=== PATIENT | male | born 1980 | race Caucasian/White ===

== ENCOUNTER 2017-01-03 13:28 | Emergency (ER) | payer SELFPAY ==
[~2017-01-03] VITALS: Ht 185.4 cm; Wt 97.0 kg
[2017-01-03 13:35] VITALS: BP 132/68; PULSE 102; RESP 18; TEMP 98.5; O2SAT 94
[2017-01-03 13:40] VITALS: O2SAT 92
[2017-01-03] MEDS ORDERED: RESP: ALBUTEROL 2.5 MG/IPRATROPIUM 0.5 MG NEB (SCH) INH ONE (13:45)
[2017-01-03] MEDS ORDERED: TETANUS/DIPHTHERIA TOXOID ADULT 0.5 ML VIAL IM ONE (13:45)
[2017-01-03] MEDS ORDERED: SODIUM CHLORIDE 0.9% FLUSH 5 ML FLUSH IVF PRN (13:45)
--- NOTE | 2017-01-03 13:45 | PD ---
HPI Chief Complaint: chest pain Time Seen by Provider: 13:28 Travel History International Travel<30 days: No Contact w/Intl Traveler<30days: No Traveled to known affect area: No History of Present Illness HPI 36-year-old male presents under police custody for medical evaluation. The patient is on vacation from [place]. He reports that yesterday evening he used a large amount of cocaine, drink alcohol with some friends. He doesn't remember most of the events of yesterday evening. Today he was arrested at [place]. According to police escort he was aggressive with him and he ended up being tased twice, once on the left shoulder, once on the left lower abdomen. 45 minutes prior to arrival the patient began complaining of chest pain. He describes it as a sharp pain in the center of the chest that is coming and going but is worse with inspiration. He also has left shoulder pain. Per police, prior to the altercation with them he had an abrasion on his forehead and an abrasion on his lip. Unknown etiology. The patient is complaining of some dizziness and dyspnea. He denies any abdominal pain, vomiting, pain in legs, cough or congestion, calf Swelling. Denies any significant past medical history. He endorses tobacco use and alcohol use on a regular basis. His last tetanus vaccination is unknown. He has no other complaints. [facility] Social History Alcohol Use: Yes Tobacco Use: Yes Substance Use: Yes Allergies-Medications (Allergen,Severity, Reaction): Coded Allergies: No Known Allergies (Unverified , 01/03/17) Reported Meds & Prescriptions Reported Meds & Active Scripts Active Proair Hfa 8.5 GM Inh (Albuterol Sulfate) 90 Mcg/Act Aer 2 Puff INH Q4-6H PRN 108 mcg/actuation Prednisone 20 Mg Tab 20 Mg PO BID 5 Days Review of Systems Except as stated in HPI: all other systems reviewed are Neg Physical Exam Narrative GENERAL: Well-developed well-nourished male in no acute distress answering questions appropriately. SKIN: Warm and dry. There is a circular abrasion on the right forehead, abrasion to the upper lip, Taser timmy on the left anterior shoulder, abrasions anterior right knee. HEAD: Skin as noted above. Normocephalic. EYES: Pupils equal and round. No scleral icterus. No injection or drainage. ENT: No nasal bleeding or discharge. Mucous membranes pink and moist. NECK: Trachea midline. No JVD. CARDIOVASCULAR: Regular rate and rhythm. No murmur appreciated. RESPIRATORY: No accessory muscle use. Mild wheezing bilaterally. No crackles. GASTROINTESTINAL: Abdomen soft, non-tender, nondistended. Hepatic and splenic margins not palpable. MUSCULOSKELETAL: There is some tenderness to the left anterior shoulder joint. There is limited range of motion left shoulder secondary to pain. There is no lower extremity edema. NEUROLOGICAL: Awake and alert. No obvious cranial nerve deficits. Motor grossly within normal limits. Normal speech. PSYCHIATRIC: Appropriate mood and affect; insight and judgment normal. Data Data Last Documented VS Vital Signs Date Time Temp Pulse Resp B/P Pulse Ox O2 Delivery O2 Flow Rate FiO2 01/03/17 15:08 97 16 127/86 96 Room Air 01/03/17 13:50 2 01/03/17 13:35 98.5 Orders Electrocardiogram (01/03/17 13:37) Basic Metabolic Panel (Bmp) (01/03/17 13:37) Ckmb (Isoenzyme) Profile (01/03/17 13:37) Complete Blood Count With Diff (01/03/17 13:37) Magnesium (Mg) (01/03/17 13:37) Prothrombin Time / Inr (Pt) (01/03/17 13:37) Act Partial Throm Time (Ptt) (01/03/17 13:37) Troponin I (01/03/17 13:37) Chest, Single Ap (01/03/17 13:37) Ecg Monitoring (01/03/17 13:37) Iv Access Insert/Monitor (01/03/17 13:37) Oximetry (01/03/17 13:37) Oxygen Administration (01/03/17 13:37) Sodium Chloride 0.9% Flush (Ns Flush) (01/03/17 13:45) Ct Brain W/O Iv Contrast(Rout) (01/03/17 ) Shoulder, Complete (>2vws) (01/03/17 ) Drug Screen, Random Urine (01/03/17 13:37) Tetanus/Diphtheria Tox Adult (Tetanus/Di (01/03/17 13:45) Albuterol-Ipratropium Neb (Duoneb Neb) (01/03/17 13:45) Ct Pulmonary Angiogram (01/03/17 14:34) Sodium Chlor 0.9% 1000 Ml Inj (Ns 1000 M (01/03/17 15:08) CKMB (01/03/17 14:21) CKMB% (01/03/17 14:21) Iohexol 350 Inj (Omnipaque 350 Inj) (01/03/17 15:19) Methylprednisolone So Succ Inj (Solumedr (01/03/17 16:15) Support Splint (01/03/17 16:07) Labs Laboratory Tests Test 01/03/17 14:21 White Blood Count 15.9 TH/MM3 Red Blood Count 5.03 MIL/MM3 Hemoglobin 15.5 GM/DL Hematocrit 43.7 % Mean Corpuscular Volume 86.7 FL Mean Corpuscular Hemoglobin 30.9 PG Mean Corpuscular Hemoglobin 35.6 % Concent Red Cell Distribution Width 13.8 % Platelet Count 204 TH/MM3 Mean Platelet Volume 9.3 FL Neutrophils (%) (Auto) 75.5 % Lymphocytes (%) (Auto) 13.5 % Monocytes (%) (Auto) 10.3 % Eosinophils (%) (Auto) 0.4 % Basophils (%) (Auto) 0.3 % Neutrophils # (Auto) 12.0 TH/MM3 Lymphocytes # (Auto) 2.1 TH/MM3 Monocytes # (Auto) 1.6 TH/MM3 Eosinophils # (Auto) 0.1 TH/MM3 Basophils # (Auto) 0.0 TH/MM3 CBC Comment DIFF FINAL Differential Comment Prothrombin Time 10.7 SEC Prothromb Time International 1.0 RATIO Ratio Activated Partial 28.5 SEC Thromboplast Time Sodium Level 139 MEQ/L Potassium Level 3.7 MEQ/L Chloride Level 105 MEQ/L Carbon Dioxide Level 24.7 MEQ/L Anion Gap 9 MEQ/L Blood Urea Nitrogen 21 MG/DL Creatinine 1.57 MG/DL Estimat Glomerular Filtration 51 ML/MIN Rate Random Glucose 76 MG/DL Calcium Level 9.1 MG/DL Magnesium Level 3.7 MG/DL Total Creatine Kinase 320 U/L Creatine Kinase MB 3.0 NG/ML Creatine Kinase MB % 0.9 % Troponin I LESS THAN 0.02 NG/ML MDM Medical Decision Making Medical Screen Exam Complete: Yes Emergency Medical Condition: Yes Medical Record Reviewed: Yes Differential Diagnosis Anxiety, cocaine induced chest pain, Prinzmetal's angina, acute coronary syndrome, PE, reactive airway disease, pneumothorax, pericarditis, myocarditis, shoulder strain, abrasion, fracture, intracranial hemorrhage Narrative Course 36 old male presents under police escort for evaluation of chest pain, left shoulder pain, abrasion to forehead, dizziness, with a history that the patient used cocaine and alcohol last night and was aggressive with police prior to arrival. On examination he has some wheezing, pain with movement of the left shoulder, abrasions to the forehead and lip and right knee. The patient will be placed on ECG monitoring and pulse oximetry. Twelve-lead EKG will be ordered and interpreted. CT brain, chest x-ray, left shoulder has been ordered as well as a CT pulmonary angiogram. Basic lab work has been ordered. The patient will be given a DuoNeb therapy, tetanus vaccination. The patient's labwork is been reviewed and is notable for BUN 21, creatinine 1.57 with GFR 51 as well as hypermagnesemia with a level of 3.7 likely secondary to the renal insufficiency. 1 L IV fluid bolus has been ordered. His total CK is elevated at 320 likely secondary to being tasered incident. Negative troponin. CBC 15.9 likely reactive. Shoulder x-ray reveals possible small avulsion fracture of the proximal humeral diaphysis. He will be given a shoulder sling. CT pulmonary angiogram was negative. The patient is stable for discharge into his custody. Recommended following up with primary care physician when he returns to [place]. He will be given prescriptions for prednisone, albuterol for his wheezing. Diagnosis Primary Impression: Renal insufficiency Additional Impressions: Wheezing Abrasions of multiple sites Left humeral fracture Qualified Code: S42.392A - Other closed fracture of shaft of left humerus, initial encounter Polysubstance abuse Additional Instructions: Wash the wounds daily. Sling. Medication as needed. Follow-up with primary care physician and return for any emergent medical conditions. Med/Other Pt SpecificInfo: Prescription(s) given Scripts Albuterol 8.5 GM Inh (Proair Hfa 8.5 GM Inh)90 Mcg/Act Aer2 Puff INH Q4-6H PRN ( SHORTNESS OF BREATH) #1 INHALER Ref 0 108 mcg/actuation Prov:Barrera Pathak MD 01/03/17 Prednisone 20 Mg Tab20 Mg PO BID 5 Days Ref 0 Prov:Barrera Pathak MD 01/03/17 Disposition: 01 DISCHARGE HOME Condition: Stable Mik Hall Jan 03, 2017 13:44
--- NOTE | 2017-01-03 14:22 | RADRPT ---
EXAM DATE/TIME: 01/03/2017 13:59 [facility] COMPARISON: No previous studies available for comparison. INDICATIONS : Abrasions and pain status post fall. MEDICAL HISTORY : None. SURGICAL HISTORY : None. ENCOUNTER: Initial ACUITY: 1 day PAIN SCORE: 0/10 LOCATION: Chest, left shoulder. FINDINGS: A single view of the chest demonstrates the lungs to be symmetrically, but under aerated without evid ence of mass, infiltrate or effusion. The cardiomediastinal contours are unremarkable. Osseous stru ctures are intact. CONCLUSION: Hypoinflation with no acute cardiac pulmonary process. Marshall Davison MD on January 03, 2017 at 14:20 Board Certified Radiologist. This report was verified electronically.
--- NOTE | 2017-01-03 14:27 | RADRPT ---
EXAM DATE/TIME: 01/03/2017 14:06 [facility] COMPARISON: No previous studies available for comparison. INDICATIONS : Cephalgia after being tazed today. RADIATION DOSE: 52.35 CTDIvol (mGy) MEDICAL HISTORY : None SURGICAL HISTORY : None. ENCOUNTER: Initial ACUITY: 1 day PAIN SCALE: 5/10 LOCATION: cranial TECHNIQUE: Multiple contiguous axial images were obtained of the head. Using automated exposure control and adj ustment of the mA and/or kV according to patient size, radiation dose was kept as low as reasonably a chievable to obtain optimal diagnostic quality images. FINDINGS: CEREBRUM: The ventricles are normal for age. No evidence of midline shift, mass lesion, hemorrhage or acute in farction. No extra-axial fluid collections are seen. POSTERIOR FOSSA: The cerebellum and brainstem are intact. The 4th ventricle is midline. The cerebellopontine angle i s unremarkable. EXTRACRANIAL: The visualized portion of the orbits is intact. SKULL: The calvaria is intact. No evidence of skull fracture. CONCLUSION: Normal examination. Abe Cuadra MD on January 03, 2017 at 14:25 Board Certified Radiologist. This report was verified electronically.
--- NOTE | 2017-01-03 14:29 | RADRPT ---
EXAM DATE/TIME: 01/03/2017 14:01 [facility] COMPARISON: No previous studies available for comparison. INDICATIONS : Abrasions and pain status post fall. MEDICAL HISTORY : None. SURGICAL HISTORY : None. ENCOUNTER: Initial ACUITY: 1 day PAIN SCORE: 0/10 LOCATION: Chest, left shoulder. FINDINGS: Multiple view examination of the left shoulder demonstrates no evidence of dislocation. The glenohum eral and acromioclavicular joints are maintained. There is normal range of motion between internal a nd external rotation. Bony mineralization is normal. A small cortical projection off the proximal di aphysis may represent a small avulsion fracture at a tendinous attachment. CONCLUSION: Possible small evulsion fracture of the proximal humeral diaphysis. Marshall Davison MD on January 03, 2017 at 14:21 Board Certified Radiologist. This report was verified electronically.
[2017-01-03 14:52] LABS: BASOPHIL % 0.3 % (0.0-2.0); EOSINOPHIL # 0.1 TH/MM3 (0-0.4); EOSINOPHIL % 0.4 % (0.0-4.0); HEMATOCRIT 43.7 % (39.0-51.0); HEMO FLAGS DIFF FINAL; LYMPH % 13.5 % (9.0-44.0); LYMPHOCYTE # 2.1 TH/MM3 (1.0-4.8); MEAN CELL VOLUME 86.7 FL (80.0-100.0); MEAN CORPUSCULAR HEMOGLOBIN 30.9 PG (27.0-34.0); MEAN CORPUSCULAR HGB CONC 35.6 % (32.0-36.0); MONO % 10.3 % (0.0-8.0); NEUT % 75.5 % (16.0-70.0); PLATELET COUNT 204 TH/MM3 (150-450); RED BLOOD COUNT 5.03 MIL/MM3 (4.50-5.90); RED CELL DISTRIBUTION WIDTH 13.8 % (11.6-17.2); WHITE BLOOD COUNT 15.9 TH/MM3 (4.0-11.0)
[2017-01-03 15:02] LABS: APTT (PATIENT) 28.5 SEC (24.3-30.1); PROTHROMBIN TIME - PATIENT 10.7 SEC (9.8-11.6)
[2017-01-03 15:06] LABS: ANION GAP 9 MEQ/L (5-15); BICARBONATE 24.7 MEQ/L (21.0-32.0); BLOOD UREA NITROGEN 21 MG/DL (7-18); CHLORIDE 105 MEQ/L (98-107); GLOMERULAR FILTRATION RATE 51 ML/MIN (>89); MAGNESIUM 3.7 MG/DL (1.5-2.5); POTASSIUM 3.7 MEQ/L (3.5-5.1); SODIUM (NA) 139 MEQ/L (136-145)
[2017-01-03 15:08] VITALS: BP 127/86; PULSE 97; RESP 16; O2SAT 96
[2017-01-03] MEDS ORDERED: SODIUM CHLOR 0.9% 1000 ML INJ 1,000 ML IV SCH (15:08)
[2017-01-03 15:09] LABS: CREATINE KINASE 320 U/L (39-308)
[2017-01-03] MEDS ORDERED: IOHEXOL 350 MG/ML 10 ML VIAL (for RAD DIAG) IV ONE (15:19)
--- NOTE | 2017-01-03 15:54 | RADRPT ---
EXAM DATE/TIME: 01/03/2017 15:14 [facility] COMPARISON: No previous studies available for comparison. INDICATIONS : Chest pain. IV CONTRAST: 75 cc Omnipaque 350 (iohexol) IV RADIATION DOSE: 23.30 CTDIvol (mGy) MEDICAL HISTORY : None SURGICAL HISTORY : None. ENCOUNTER: Initial ACUITY: 1 day PAIN SCALE: 4/10 LOCATION: Bilateral chest TECHNIQUE: Volumetric scanning of the chest was performed using a pulmonary embolism protocol MIP images were re constructed. Using automated exposure control and adjustment of the mA and/or kV according to patien t size, radiation dose was kept as low as reasonably achievable to obtain optimal diagnostic quality images. FINDINGS: No filling defects to suggest pulmonary embolic disease. No pleural or pericardial effusion. Mild dep endent atelectasis in the lungs. No adenopathy. No acute findings in the upper abdomen. CONCLUSION: 1. Negative for pulmonary embolus. Minimal dependent atelectasis in the lungs. Maksim Vargas MD on January 03, 2017 at 15:47 Board Certified Radiologist. This report was verified electronically.
[2017-01-03] MEDS ORDERED: PRED20 PO (16:04)
[2017-01-03] MEDS ORDERED: ALBUAER3 INH (16:04)
[2017-01-03] MEDS ORDERED: methylPREDNISolone SOD SUCC 125 MG/2 ML VIAL IV PUSH ONE (16:15)
--- NOTE | 2017-01-04 12:50 | EKG ---
Date Performed: 01/03/2017 Time Performed: 13:37:13 PTAGE: 36 years EKG: SINUS TACHYCARDIA NONSPECIFIC T-WAVE ABNORMALITY ABNORMAL RHYTHM ECG NO PREVIOUS TRACING DOCTOR: Donnie Cerrato Interpretating Date/Time 01/04/2017 12:49:08
== END 2017-01-03 17:11 | disposition home or self-care (01) ==
LOC: EDBD → NEPC 13:28
DX: N28.9 Disorder of kidney and ureter, unspecified (principal); F14.10 Cocaine abuse, uncomplicated; S42.302A Unspecified fracture of shaft of humerus, left arm, initial encounter for closed fracture; S00.511A Abrasion of lip, initial encounter; S80.211A Abrasion, right knee, initial encounter; S00.81XA Abrasion of other part of head, initial encounter; R06.2 Wheezing; F10.10 Alcohol abuse, uncomplicated; Y35.891A Legal intervention involving other specified means, law enforcement official injured, initial encounter; Y93.9 Activity, unspecified; Y92.9 Unspecified place or not applicable; Y99.9 Unspecified external cause status
CPT/HCPCS: 70450; 71010; 71275; 73030; 80048; 82550; 82552; 83735; 84484; 85025; 85610; 85730; 90471; 90714; 93005; 94664; 96361; 96374; 99284; J2930; J7030; Q9967